=== PATIENT | male | born 1970 | race Two or more races ===

== ENCOUNTER 2019-08-12 18:37 | Inpatient (IN) | payer OTHER ==
[~2019-08-12] VITALS: Ht 190.5 cm; Wt 109.8 kg
[2019-08-12] MEDS ORDERED: HYOSCYAMINE0.125 M2 (20:24)
[2019-08-12] MEDS ORDERED: TACROLIMUS (20:25)
[2019-08-12] MEDS ORDERED: MYFORTIC (20:25)
[2019-08-12] MEDS ORDERED: PEPCID (20:27)
[2019-08-12] MEDS ORDERED: SEPTRA (20:27)
[2019-08-12] MEDS ORDERED: HEMATRON (20:28)
[2019-08-12] MEDS ORDERED: FLOMAX (20:28)
[2019-08-12] MEDS ORDERED: PREDNIZONE (20:29)
== END 2019-08-13 03:15 | disposition home or self-care (01) | DRG 700 ==
LOC: ER 18:37 → SEC-K 19:52 → O/R 19:52
PROVIDERS: ADMIT Urology
PROC: 0TP98DZ Removal of Intraluminal Device from Ureter, Via Natural or Artificial Opening Endoscopic (ICD-10-PCS; principal; 2019-08-12 20:30)
DX: T83.091A Other mechanical complication of indwelling urethral catheter, initial encounter (principal); R31.0 Gross hematuria; R33.8 Other retention of urine